=== PATIENT | female | born 1990 | race African-American/Black ===

== ENCOUNTER 2019-05-15 09:57 | Emergency (ER) | payer OTHER ==
[~2019-05-15] VITALS: Ht 157.5 cm; Wt 45.0 kg
[2019-05-15 10:37] VITALS: BP 126/62
== END 2019-05-15 21:03 | disposition left against medical advice (07) ==
LOC: ER 10:20
DX: M54.9 Dorsalgia, unspecified (principal); Z53.21 Procedure and treatment not carried out due to patient leaving prior to being seen by health care provider